=== PATIENT | male | born 1995 | race Caucasian/White ===

== ENCOUNTER 2019-05-04 20:26 | Emergency (ER) | payer BC ==
--- NOTE | 2019-05-04 22:23 | ER ---
Nurse's Notes [facility] Name: Fadi Sapp Age: 24 yrs Sex: Male : 1995 Arrival Date: 05/04/2019 Time: 20:30 Bed 26 Private MD: Diagnosis: SCROTAL PAIN Presentation: 05/04 20:39 Presenting complaint: Patient states: I have been having left sided testicular la1 discomfort for the last 4-6 months. Transition of care: patient was not received from another setting of care. Onset of symptoms was May 04, 2019. Risk Assessment: Do you want to hurt yourself or someone else? Patient reports no desire to harm self or others. Initial Sepsis Screen: Does the patient meet any 2 criteria? No. Patient's initial sepsis screen is negative. Does the patient have a suspected source of infection? No. Patient's initial sepsis screen is negative. Care prior to arrival: None. 20:39 Method Of Arrival: Ambulatory la1 20:39 Acuity: OSMANY 5 la1 Triage Assessment: 22:11 Pain: Complains of pain in groin. rv Historical: - Allergies: 20:40 No Known Allergies; la1 - PMHx: 20:40 None; la1 - Immunization history:: Adult Immunizations up to date. - Social history:: Smoking status: Patient/guardian denies using tobacco. - Ebola Screening: : No symptoms or risks identified at this time. Screenin:10 Abuse screen: Denies threats or abuse. Denies injuries from another. Nutritional rv screening: No deficits noted. Tuberculosis screening: No symptoms or risk factors identified. Fall Risk None identified. Assessment: 22:12 General: Appears in no apparent distress. comfortable, Behavior is calm, cooperative. rv Pain: Complains of pain in groin. Neuro: Level of Consciousness is awake, alert, obeys commands, Oriented to person, place, time, situation. Cardiovascular: Patient's skin is warm and dry. Respiratory: Airway is patent. GI: No signs and/or symptoms were reported involving the gastrointestinal system. : No signs and/or symptoms were reported regarding the genitourinary system. :. EENT: No signs and/or symptoms were reported regarding the EENT system. Derm: Skin is intact. Musculoskeletal: No signs and/or symptoms reported regarding the musculoskeletal system. Vital Signs: 20:40 BP 131 / 72; Pulse 89; Resp 16; Temp 97.6; Pulse Ox 98% on R/A; Weight 77.11 kg; Height la1 5 ft. 10 in. (177.80 cm); 22:20 BP 125 / 70; Pulse 91; Resp 17 S; Temp 98.2(O); Pulse Ox 99% on R/A; ca1 20:40 Body Mass Index 24.39 (77.11 kg, 177.80 cm) la1 ED Course: 20:30 Patient arrived in ED. mr 20:40 Triage completed. la1 20:40 Arm band placed on right wrist. la1 21:32 Joshua Finch MD is Attending Physician. gs 21:33 Kisha Alcocer, LE is Primary Nurse. ca1 22:10 Patient has correct armband on for positive identification. Bed in low position. Call rv light in reach. Side rails up X 1. Pulse ox on. NIBP on. 22:22 Nico Magana MD is Referral Physician. gs 22:23 No provider procedures requiring assistance completed. Patient did not have IV access ca1 during this emergency room visit. Administered Medications: No medications were administered Outcome: 22:22 Discharge ordered by . gs 22:23 Discharged to home ambulatory. ca1 22:23 Condition: stable 22:23 Discharge instructions given to patient, Instructed on discharge instructions, follow up and referral plans. Demonstrated understanding of instructions, follow-up care. 22:28 Patient left the ED. rv Signatures: Meeta Duran Lee, RN RN la1 Joshua Finch MD MD Oracio Martínez RN RN rv Kisha Alcocer RN RN ca1
--- NOTE | 2019-05-04 22:24 | EDPHYS ---
Physician Documentation [facility] Name: Fadi Sapp Age: 24 yrs Sex: Male : 1995 Arrival Date: 05/04/2019 Time: 20:30 Bed 26 Private MD: ED Physician Joshua Finch HPI: 05/04 22:19 This 24 yrs old Male presents to ER via Ambulatory with complaints of gs Testicular Pain. 22:19 The patient presents with scrotal pain, of the left side, without swelling, without gs erythema. Onset: The symptoms/episode began/occurred 5 month(s) ago. Modifying factors: The symptoms are alleviated by nothing, the symptoms are aggravated by nothing. Associated signs and symptoms: Pertinent negatives: abdominal pain, constipation, dysuria, discharge. Severity of symptoms: At their worst the symptoms were moderate, in the emergency department the symptoms have improved, markedly. The patient has experienced similar episodes in the past, multiple times. The patient has not recently seen a physician. Historical: - Allergies: 20:40 No Known Allergies; la1 - PMHx: 20:40 None; la1 - Immunization history:: Adult Immunizations up to date. - Social history:: Smoking status: Patient/guardian denies using tobacco. - Ebola Screening: : No symptoms or risks identified at this time. ROS: 22:19 All other systems are negative. gs Exam: 22:19 Head/Face: Normocephalic, atraumatic. Eyes: Pupils equal round and reactive to light, gs extra-ocular motions intact. Lids and lashes normal. Conjunctiva and sclera are non-icteric and not injected. Cornea within normal limits. Periorbital areas with no swelling, redness, or edema. ENT: Nares patent. No nasal discharge, no septal abnormalities noted. Tympanic membranes are normal and external auditory canals are clear. Oropharynx with no redness, swelling, or masses, exudates, or evidence of obstruction, uvula midline. Mucous membranes moist. Neck: Trachea midline, no thyromegaly or masses palpated, and no cervical lymphadenopathy. Supple, full range of motion without nuchal rigidity, or vertebral point tenderness. No Meningismus. Chest/axilla: Normal chest wall appearance and motion. Nontender with no deformity. No lesions are appreciated. Cardiovascular: Regular rate and rhythm with a normal S1 and S2. No gallops, murmurs, or rubs. Normal PMI, no JVD. No pulse deficits. Respiratory: Lungs have equal breath sounds bilaterally, clear to auscultation and percussion. No rales, rhonchi or wheezes noted. No increased work of breathing, no retractions or nasal flaring. Abdomen/GI: Soft, non-tender, with normal bowel sounds. No distension or tympany. No guarding or rebound. No evidence of tenderness throughout. Skin: Warm, dry with normal turgor. Normal color with no rashes, no lesions, and no evidence of cellulitis. MS/ Extremity: Pulses equal, no cyanosis. Neurovascular intact. Full, normal range of motion. Neuro: Awake and alert, GCS 15, oriented to person, place, time, and situation. Cranial nerves II-XII grossly intact. Motor strength 5/5 in all extremities. Sensory grossly intact. Cerebellar exam normal. Normal gait. 22:19 Constitutional: The patient appears alert, awake. 22:19 : Male external genitalia: normal, no swelling, no tenderness. Vital Signs: 20:40 BP 131 / 72; Pulse 89; Resp 16; Temp 97.6; Pulse Ox 98% on R/A; Weight 77.11 kg; Height la1 5 ft. 10 in. (177.80 cm); 22:20 BP 125 / 70; Pulse 91; Resp 17 S; Temp 98.2(O); Pulse Ox 99% on R/A; ca1 20:40 Body Mass Index 24.39 (77.11 kg, 177.80 cm) la1 MDM: 21:37 Patient medically screened. 22:19 Differential diagnosis: prostatitis, urethritis, TORSION EPIDIMYTIS. Data reviewed: vital signs, nurses notes. Counseling: I had a detailed discussion with the patient and/or guardian regarding: the historical points, exam findings, and any diagnostic results supporting the discharge/admit diagnosis, lab results, radiology results, the need for outpatient follow up, a urologist. Response to treatment: the patient's symptoms have mildly improved after treatment, and as a result, I will discharge patient. 05/04 21:38 Order name: Urine Dipstick-Ancillary (obtain specimen); Complete Time: 22:09 Administered Medications: No medications were administered Disposition: 05/04/19 22:22 Discharged to Home. Impression: SCROTAL PAIN. - Condition is Stable. - Discharge Instructions: Testicular Self-Exam. - Medication Reconciliation Form, Thank You Letter, Antibiotic Education, Prescription Opioid Use form. - Follow up: Private Physician; When: 2 - 3 days; Reason: Re-evaluation by your physician. Follow up: Nico Magana MD; When: 2 - 3 days; Reason: Re-evaluation by your physician. Signatures: Renard Wen RN RN la1 Joshua Finch MD MD Oracio Martínez RN RN rv Corrections: (The following items were deleted from the chart) 22:22 22:22 05/04/2019 22:22 Discharged to Home. Impression: SCROTAL PAIN. Condition is gs Stable. Forms are Medication Reconciliation Form, Thank You Letter, Antibiotic Education, Prescription Opioid Use. Follow up: Private Physician; When: 2 - 3 days; Reason: Re-evaluation by your physician. 22:28 22:22 05/04/2019 22:22 Discharged to Home. Impression: SCROTAL PAIN. Condition is rv Stable. Discharge Instructions: Testicular Self-Exam. Forms are Medication Reconciliation Form, Thank You Letter, Antibiotic Education, Prescription Opioid Use. Follow up: Private Physician; When: 2 - 3 days; Reason: Re-evaluation by your physician. Follow up: Nico Magana; When: 2 - 3 days; Reason: Re-evaluation by your physician.
[2019-05-04 22:47] LABS: Urine Blood NEGATIVE (NEG); Urine Glucose NEGATIVE (NEG); Urine Protein TRACE (NEG)
[2019-05-04 23:04] LABS: Urine Bacteria <20 /HPF (NONE SEEN); Urine Culture Reflex Order NOT NEEDED; Urine Mucus 1+ /HPF (NONE SEEN); Urine RBC <5 /HPF (NONE SEEN)
--- NOTE | 2019-05-05 07:49 | RAD REPORT ---
EXAM DESCRIPTION: US - Scrotum Testicles - 05/04/2019 9:54 pm CLINICAL HISTORY: Left Testicular pain COMPARISON: None FINDINGS: Right testicle measures 4.4 x 1.9 x 3 centimeters. Echotexture is homogeneous. Normal bloo d flow Left testicle measures 3.8 x 2 x 3.2 centimeters. Echotexture is homogeneous. Normal blood flow The epididymides are normal in size and echotexture. Normal blood flow is seen. Small left hydrocele IMPRESSION: Small left hydrocele. Otherwise unremarkable exam
== END 2019-05-04 22:28 | disposition home or self-care (01) ==
LOC: ER 20:26
DX: N50.82 Scrotal pain (principal)
CPT/HCPCS: 76870; 81003; 81015